=== PATIENT | male | born 2005 | race Caucasian/White ===

== ENCOUNTER 2024-07-02 18:18 | Emergency (ER) | payer BC, OTHER ==
[2024-07-02 18:45] VITALS: TEMP 96.9; O2SAT 99
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
[2024-07-02 19:57] VITALS: BP 130/76; PULSE 90; RESP 16
--- NOTE | 2024-07-03 08:52 | XRAY ---
Indication: Pain following injury. Comparison: None 3 view left 3rd finger demonstrates cortical disruption distal phalanx anteriorly with soft tissue swelling, possible fracture. No other bony, articular, or soft tissue abnormalities.
== END 2024-07-02 19:57 | disposition home or self-care (01) ==
LOC: ED 18:18
DX: S62.603A Fracture of unspecified phalanx of left middle finger, initial encounter for closed fracture (principal); W23.0XXA Caught, crushed, jammed, or pinched between moving objects, initial encounter; Y92.148 Other place in prison as the place of occurrence of the external cause; Y99.0 Civilian activity done for income or pay; Z72.0 Tobacco use
CPT/HCPCS: 73140; 99283